=== PATIENT | female | born 1955 | race Caucasian/White ===

== ENCOUNTER 2017-04-20 16:01 | Inpatient (IN) | payer SELFPAY ==
[~2017-04-20] VITALS: Ht 167.6 cm; Wt 71.7 kg
--- NOTE | 2017-04-20 16:25 | NUR ---
PATIENT BIB EMS DUE TO BRUISING AND SWELLING ON LEFT ORBITAL. PATIENT IS A/OX 1-2, BUT DELUSIONAL WITH HALLUCINATIONS. PATIENT IS SEEN TALKING TO SELF. UNALBE TO PROVIDE MUCH HISTORY OR INFORMATION WITH HER BRUISING. PATIENTS VITALS REMAINS STABLE. SAFETY AND COMFORT MEASURES IN PLACE. AWAITING MD ORDERS.
[2017-04-20] MEDS ORDERED: IV NS 0.9% 1,000 ML BAG IV ONE (16:30)
[2017-04-20] MEDS ORDERED: OLANZAPINE 10 MG VIAL IM ONE ×2 (16:35→17:00)
[2017-04-20] MEDS ORDERED: ACET-868 PO (16:35)
[2017-04-20] MEDS ORDERED: LEVO100T9 PO (16:35)
[2017-04-20] MEDS ORDERED: DIVA500T2 PO (16:35)
[2017-04-20] MEDS ORDERED: BENZ1TAB7 PO (16:35)
[2017-04-20] MEDS ORDERED: MAG30ORA PO (16:35)
[2017-04-20] MEDS ORDERED: ARIP30TA PO (16:35)
[2017-04-20] MEDS ORDERED: QUET300T2 PO (16:35)
[2017-04-20] MEDS ORDERED: ACETAMINOPHEN 325 MG TABLET PO PRN ×2 (17:00→17:30)
[2017-04-20] MEDS ORDERED: MAG HYDROX/AL HYDROX/SIMETH 30 ML UDC PO PRN ×2 (17:00→17:30)
[2017-04-20] MEDS ORDERED: IV NS 0.9% 1,000 ML IV PRN (17:05)
[2017-04-20 17:15] LABS: BASOPHILS % (AUTO) 0.5 % (0.0-2.0); EOSINOPHILS # (AUTO) 0.2 /CMM (0.0-0.7); HEMATOCRIT 33 % (33-45); LYMPHOCYTES # (AUTO) 2.5 /CMM (0.8-4.8); LYMPHOCYTES % (AUTO) 52.6 % (20.0-44.0); MEAN CORPUSCULAR HEMOGLOBIN 31 PG (26.0-33.0); MEAN CORPUSCULAR HGB CONC 34 g/dl (31.0-36.0); MEAN CORPUSCULAR VOLUME 93 fL (82-100); MONOCYTES # (AUTO) 0.6 /CMM (0.1-1.30); MONOCYTES % (AUTO) 12.1 % (2.0-12.0); NEUTROPHILS # (AUTO) 1.4 /CMM (1.8-8.9); NEUTROPHILS % (AUTO) 30.8 % (43.0-81.0); PLATELET COUNT (AUTO) 165 /CMM (150-450); RDW COEFFICIENT OF VARIATION 16.4 (11.5-15.0); RED BLOOD CELL COUNT(AUTO) 3.52 MIL/uL (4.0-5.2); WHITE BLOOD COUNT (AUTO) 4.7 K/uL (4.3-11.0)
[2017-04-20 17:25] LABS: CALCIUM, SERUM 8.4 mg/dL (8.5-10.1); CARBON DIOXIDE 30 mmol/L (21-32); CHLORIDE 106 mmol/L (98-107); CREATININE 1.3 mg/dL (0.6-1.3); GLUCOSE 89 mg/dL (74-106); POTASSIUM 4.2 mmol/L (3.5-5.1); SODIUM SERUM 142 mmol/L (136-145); UREA NITROGEN, BLOOD 22 mg/dL (7-18)
--- NOTE | 2017-04-20 17:25 | NUR ---
NEW IV STARTED ON RAC, 18 G. BLOOD DRAWN AND SENT TO LAB.
[2017-04-20] MEDS ORDERED: LORAZEPAM INJ 2 MG/ML VIAL ONE (17:28)
[2017-04-20] MEDS ORDERED: diphenhydrAMINE HCL 50 MG/ML VIAL ONE (17:28)
[2017-04-20] MEDS ORDERED: HYDROCODONE/APAP 5/325MG 1 EACH TABLET PO PRN (17:30)
[2017-04-20] MEDS ORDERED: diphenhydrAMINE HCL 50 MG/ML VIAL IM ONE (17:30)
[2017-04-20] MEDS ORDERED: ZOLPIDEM TARTRATE 5 MG TABLET PO PRN (17:30)
[2017-04-20] MEDS ORDERED: ONDANSETRON HCL/PF 4 MG/2 ML VIAL IVP PRN (17:30)
[2017-04-20] MEDS ORDERED: LORAZEPAM INJ 2 MG/ML VIAL IM/IV ONE (17:30)
[2017-04-20] MEDS ORDERED: MAGNESIUM HYDROXIDE 30 ML UDC PO PRN (17:30)
[2017-04-20] MEDS ORDERED: Z GUARD REMEDY 2 OZ OINT TP PRN (17:30)
[2017-04-20 17:34] LABS: TROPONIN I < 0.017 ng/mL (0.00-0.056)
--- NOTE | 2017-04-20 17:43 | NUR ---
PER DR. PRESLEY CASE TO GIVE BENADRYL AND ATIVAN VIA IV, NOW THAT ACCESS IS OBTAINED.
--- NOTE | 2017-04-20 18:05 | NUR ---
PATIENT TAKENT TO CT VIA STRETCHER
--- NOTE | 2017-04-20 18:20 | NUR ---
PATIENT RETURNED FROM CT.
--- NOTE | 2017-04-20 18:50 | NUR ---
REPORT GIVEN TO REDDY CARROLL FOR ADMISSION.
--- NOTE | 2017-04-20 18:55 | NUR ---
PATIENT TRANSPORTED TO [facility] VIA ACLS PROTOCOL. RNREDDY TO PROVIDE ELIAS.
--- NOTE | 2017-04-20 19:00 | NUR ---
RN NOTES: REC'D REPORT FROM SENIOR TECHNICAL TRAINER [place]. PT CAME AT [facility] 1900[facility] VIA [place] ACCOMPANIED BY DISABILITY SERVICES COORDINATOR AND DARIAN JOE. PT ENDORSED TO PM RN FOR ADMISSION.
--- NOTE | 2017-04-20 19:15 | NUR ---
RN OPENING NOTES: RECEIVED PATIENT FROM ER VIA GURNEY. PATIENT NOTED TO BE DROWSY BUT AROUSABLE. ABLE TO FOLLOW COMMANDS, ALERT ORIENTED X2. WITH EPISODES OF UNCLEAR TANGENTIAL SPEECH. TO MONITOR NEURO STATUS CLOSELY. ATTACHED TO MONITOR, REVEALS SINUS SUN AT 58BPM. IV ACCESS ON RAC G20 INTACT. SKIN CHECK DONE, PHOTODOCUMENTATION FILED. NO COMPLAINTS OF PAIN VERBALIZED. FALL PREVENTION INITIATED. BED EXIT ALARM ON AT ALL TIMES. SAFETY MEASURES ENSURED. CONTINUOUSLY MONITORED.
[2017-04-20 20:00] VITALS: BP 136/75
[2017-04-20] MEDS: DIVALPROEX SODIUM 500 MG TABLET.DR PO SCH (21:15)
[2017-04-20] MEDS: BENZTROPINE MESYLATE (1 MG) 1 MG TABLET PO SCH (21:15)
[2017-04-20] MEDS: QUETIAPINE FUMARATE 100 MG TABLET PO SCH (21:15)
[2017-04-20] MEDS ORDERED: ARIPIPRAZOLE 5 MG TABLET PO SCH (22:00)
[2017-04-21] VITALS: BP 130/68
[2017-04-21 04:00] VITALS: BP 130/75
--- NOTE | 2017-04-21 06:44 | NUR ---
RN CLOSING NOTES; PATIENT REMAINED NOT IN DISTRESS. NOTED TO BE MORE AWAKE, OCCASIONALLY SCREAMS AND TENDS TO BE UNCOOPERATIVE. REMAINED SINUS RHYTHM ON MONITOR. IV ACCESS INTACT, IVF INFUSING. SAFETY MEASURES AND SKIN CARE ENSURED. TO ENDORSE TO AM SHIFT RN FOR CONTINUITY OF CARE.
--- NOTE | 2017-04-21 07:10 | NUR ---
KITCHENHAND NOTE: RECEIVED PT DISROBING AND ATTEMPTING TO GET OUT OF BED. PT IS CONFUSED, AGGRESSIVE AND HAS INCOMPREHENSIBLE WORDS. TELE REMOVED BY PT AND REFUSED TO HAVE IT REPLACED AND GOT AGGRESSIVE. DVT PUMPS REMOVED BY PT AND REFUSED TO HAVE THEM REPLACED AND GOT AGGRESSIVE. LEFT EYE FACIAL BRUISE NOTED. RAC WITH NS RUNNING AT 75CC/HR. CHARGE NURSE AWARE OF 1:1 REQUEST FOR SAFETY CONCERNS. BED LOW, LOCKED, ALARM ON WITH CALL LIGHT WITHIN REACH. WILL CONT TO MONITOR.
[2017-04-21] MEDS ORDERED: LEVOTHYROXINE SODIUM 100 MCG TABLET PO SCH (07:30)
[2017-04-21] MEDS ORDERED: PANTOPRAZOLE 40 MG TABLET.DR PO SCH (07:30)
--- NOTE | 2017-04-21 07:30 | NUR ---
VALVE INSPECTOR NOTE: INFORMED BY CHARGE NURSE THAT NO SITTER FOR 1:1 SAFETY AVAILABLE AT THE TIME. WILL CONT TO MONITOR.
--- NOTE | 2017-04-21 07:45 | NUR ---
MS RN NOTE: PER REPORT, PT REMOVED NC FOR 2LPM O2. VITALS GIVEN. O2 SAT 100% ON RA. PT REFUSED TEMP.
[2017-04-21 08:00] VITALS: BP 140/66
--- NOTE | 2017-04-21 09:19 | NUR ---
GRADING MACHINE FEEDER NOTE: CAT SCAN TECHNOLOGIST AT BEDSIDE. PT REFUSED.
--- NOTE | 2017-04-21 09:44 | NUR ---
SAMPLE FINISHER NOTE: PT REMOVED IV LINE. CHARGE NURSE AWARE. WILL CONT TO MONITOR.
--- NOTE | 2017-04-21 10:00 | NUR ---
CELLOPHANE WORKER NOTE: PT NONCOMPLIANT WITH CARE AND REFUSING ASSISTANCE WITH AMBULATING, DISRUPTIVE AND YELLING. PT MOVED TO ROOM 106. STILL AWAITING 1:1 SITTER. CHARGE NURSE AWARE. BED LOCKED, LOW, ALARM ON WITH CALL LIGHT WITHIN REACH. WILL CONT TO MONITOR.
[2017-04-21] MEDS: QUETIAPINE FUMARATE 100 MG TABLET PO SCH ×2 (10:48→16:11)
[2017-04-21] MEDS: DIVALPROEX SODIUM 500 MG TABLET.DR PO SCH ×2 (10:49→16:11)
[2017-04-21] MEDS: BENZTROPINE MESYLATE (1 MG) 1 MG TABLET PO SCH ×2 (10:49→16:11)
--- NOTE | 2017-04-21 10:56 | NUR ---
MS RN NOTE: PT REFUSED LABS. PER LAB, WILL NOTIFY NIGHT DENTAL INSURANCE COORDINATOR FOR ANOTHER ATTEMPT.
--- NOTE | 2017-04-21 11:27 | NUR ---
MS RN NOTE: PATIENT REFUSED PT EVAL AT BEDSIDE.
[2017-04-21 12:00] VITALS: BP_SYST 135; BP_SYST 140; BP_DIAS 66; BP_DIAS 78
[2017-04-21 13:54] LABS: BASOPHILS % (AUTO) 0.1 % (0.0-2.0); EOSINOPHILS # (AUTO) 0.2 /CMM (0.0-0.7); EOSINOPHILS % (AUTO) 4.1 % (0.0-6.0); HEMATOCRIT 36 % (33-45); HEMOGLOBIN 11.7 g/dL (11.5-14.8); LYMPHOCYTES # (AUTO) 1.6 /CMM (0.8-4.8); LYMPHOCYTES % (AUTO) 40.5 % (20.0-44.0); MEAN CORPUSCULAR HEMOGLOBIN 31 PG (26.0-33.0); MEAN CORPUSCULAR HGB CONC 33 g/dl (31.0-36.0); MEAN CORPUSCULAR VOLUME 95 fL (82-100); MONOCYTES # (AUTO) 0.3 /CMM (0.1-1.30); MONOCYTES % (AUTO) 8.7 % (2.0-12.0); NEUTROPHILS # (AUTO) 1.8 /CMM (1.8-8.9); NEUTROPHILS % (AUTO) 46.6 % (43.0-81.0); PLATELET COUNT (AUTO) 176 /CMM (150-450); RDW COEFFICIENT OF VARIATION 17.6 (11.5-15.0); RED BLOOD CELL COUNT(AUTO) 3.82 MIL/uL (4.0-5.2); WHITE BLOOD COUNT (AUTO) 3.9 K/uL (4.3-11.0)
[2017-04-21 14:10] LABS: CALCIUM, SERUM 8.2 mg/dL (8.5-10.1); CREATININE 0.9 mg/dL (0.6-1.3); MAGNESIUM 1.8 mg/dL (1.8-2.4); PHOSPHORUS 3.4 mg/dL (2.5-4.9)
[2017-04-21 16:00] VITALS: BP 115/64
--- NOTE | 2017-04-21 17:30 | NUR ---
MS RN NOTE: PATIENT D/C BACK TO [facility]. REPORT GIVEN TO INTAKE NURSE CODY. PT LEFT IN STABLE CONDITION. VS: 97.2 TEMP, 63 HR, 19 RR, 100% O2SAT, 115/64 BP. REFUSED PICTURES. PT UNABLE TO SIGN D/C FORMS DUE TO CONFUSION. BELONGINGS RETURNED. ORDERS CARRIED OUT. PT LEFT THE UNIT VIA RLICKING WITH 2 EMT AT 1730.
== END 2017-04-21 17:33 | DRG 641 ==
LOC: EDSEX 16:06 → ER 16:06 → TELE1 18:18 → MEDSG1 04-21 10:32
PROVIDERS: ADMIT Internal Medicine; ATTEND Internal Medicine
DX: E86.0 Dehydration (principal); E11.22 Type 2 diabetes mellitus with diabetic chronic kidney disease; S02.2XXA Fracture of nasal bones, initial encounter for closed fracture; J44.9 Chronic obstructive pulmonary disease, unspecified; S00.83XA Contusion of other part of head, initial encounter; F20.9 Schizophrenia, unspecified; E03.9 Hypothyroidism, unspecified; F17.210 Nicotine dependence, cigarettes, uncomplicated; M19.90 Unspecified osteoarthritis, unspecified site; R55 Syncope and collapse; N18.9 Chronic kidney disease, unspecified; W19.XXXA Unspecified fall, initial encounter; Y93.9 Activity, unspecified; Y92.89 Other specified places as the place of occurrence of the external cause; R29.6 Repeated falls
CPT/HCPCS: 36415; 70450-TC; 70486-TC; 71010-TC; 80048-TC; 83735-TC; 84100-TC; 84484-TC; 85025-TC; 87081-TC; A4606; J1200; J2060; J3490; J7030; Z7610